=== PATIENT | male | born 1935 | race Hispanic/Latino ===

== ENCOUNTER → 2017-11-30 | Outpatient (CLI) | payer OTHER ==
[~2017-11-30] MED LIST: ACET1TAB12 PO; AEC81 PO; CARB15DR54 OU; DICL100G31 TP; DONE5TAB5 PO; IBUP-2070 PO; LATA2.5D2 OP; LORA10CA9 PO; METO10TA3 PO; METO5TAB2 PO; PANT40TA25 PO; RANI150C4 PO; SIMV20TA6 PO; TAMS0.4C32 PO; TOP2515C TP
== END | disposition home or self-care (01) ==
LOC: RAH 08:06
PROVIDERS: ATTEND Internal Medicine Gastroenterology
DX: K76.0 Fatty (change of) liver, not elsewhere classified (principal)
CPT/HCPCS: 76700

== ENCOUNTER 2017-12-08 06:56 | Day surgery (SDC) | payer OTHER ==
[~2017-12-08] VITALS: Ht 170.2 cm; Wt 101.2 kg
[~2017-12-08 06:56] MED LIST changes: -ACET1TAB12 PO; -CARB15DR54 OU; -DICL100G31 TP; -LATA2.5D2 OP; -METO10TA3 PO; -RANI150C4 PO
[2017-12-08 07:30] VITALS: BP 150/70
[2017-12-08] MEDS ORDERED: SODIUM CHLORIDE 0.9% 1000ML 1,000 ML IV ONE (07:50)
[2017-12-08] MEDS ORDERED: PROPOFOL 10 MG/ML 20ML VIAL IV ONE ×2 (08:32→08:57)
[2017-12-08 08:59] VITALS: BP 90/41
== END 2017-12-08 09:44 ==
LOC: DAH 06:56
PROVIDERS: ATTEND Internal Medicine Gastroenterology
DX: D12.2 Benign neoplasm of ascending colon (principal); D12.3 Benign neoplasm of transverse colon; K21.9 Gastro-esophageal reflux disease without esophagitis; I10 Essential (primary) hypertension; E78.5 Hyperlipidemia, unspecified; N40.0 Benign prostatic hyperplasia without lower urinary tract symptoms; F03.90 Unspecified dementia, unspecified severity, without behavioral disturbance, psychotic disturbance, mood disturbance, and anxiety; Z86.010 Personal history of colon polyps
CPT/HCPCS: 45380; 45381; 88305; 88313; 93005; A4606; J2704 ×2; J7030

== ENCOUNTER 2018-01-12 13:00 | Inpatient (IN) | payer OTHER ==
[~2018-01-12] VITALS: Ht 172.7 cm; Wt 103.3 kg
[~2018-01-12 13:00] MED LIST changes: -LORA10CA9 PO; -METO5TAB2 PO; -PANT40TA25 PO; -TAMS0.4C32 PO
[2018-03-06 12:13] VITALS: BP 123/58
[2018-03-06 12:25] LABS: BASOPHILS % (AUTO) 0.6 % (0.0-5.0); EOSINOPHILS % (AUTO) 2.1 % (0.0-8.0); HEMATOCRIT 39.9 % (42-54); LYMPHOCYTES % (AUTO) 24.3 % (21.0-51.0); MEAN CORPUSCULAR HEMOGLOBIN 28.4 pg (27.0-33.0); MEAN CORPUSCULAR HGB CONC 33.5 g/dL (32.0-36.0); MONOCYTES % (AUTO) 5.8 % (3.0-13.0); NEUTROPHILS % (AUTO) 67.2 % (40.0-77.0); NUCLEATED RED BLOOD CELLS 0.1 % (0.0-0.19); PLATELET COUNT (AUTO) 158 K/uL (130-400); WHITE BLOOD COUNT (AUTO) 6.1 K/uL (4.8-10.8)
[2018-03-06 12:30] LABS: APPEARANCE,URINE Clear (CLEAR); BILIRUBIN,URINE Small (NEGATIVE); COLOR,URINE Dark Yellow (YELLOW); GLUCOSE, URINE (UA) Negative (NEGATIVE); KETONES,URINE Trace mg/dL (NEGATIVE); LEUKOCYTE ESTERASE ,URINE Negative (NEGATIVE); NITRATE,URINE Negative (NEGATIVE); OCCULT BLOOD,URINE Trace (NEGATIVE); PH,URINE 5.5 (5.0-8.0); PROTEIN,URINE POS 1+ (NEGATIVE)
[2018-03-06 12:32] LABS: POTASSIUM 4.2 mmol/L (3.5-5.1)
[2018-03-06 13:26] LABS: BACTERIA,URINE Rare /HPF (None Seen); RBC,URINE 0-1 /HPF (0-1); WBC,URINE None Seen /HPF (0-1)
[2018-03-06 13:27] LABS: CALCIUM OXALATE CRYSTALS,UR Many /LPF (None Seen); HYALINE CASTS, URINE 26-50 /LPF (0-1 /LPF); MUCUS,URINE Many LPF (None Seen)
[2018-03-06] MEDS ORDERED: LATA2.5D2 OP (13:46)
[2018-03-06] MEDS ORDERED: DICL100G31 TP (13:46)
[2018-03-08] VITALS (23 sets, daily range): BP systolic 95–167; BP diastolic 52–91
[2018-03-08] MEDS ORDERED: CEFOXITIN SODIUM 2 GM VIAL IVP ONE (08:00)
[2018-03-08] MEDS ORDERED: LACTATED RINGERS 1000ML 1,000 ML IV ONE (09:14)
[2018-03-08] MEDS ORDERED: CEFAZOLIN SODIUM 1 GM VIAL ONE (09:14)
[2018-03-08] MEDS ORDERED: TAMS0.4C32 PO (10:01)
[2018-03-08] MEDS ORDERED: METO10TA3 PO (10:01)
[2018-03-08] MEDS ORDERED: CARB15DR54 OU (10:01)
[2018-03-08] MEDS ORDERED: CEFOXITIN SODIUM 2 GM VIAL ONE (10:08)
[2018-03-08] MEDS ORDERED: MIDAZOLAM HCL 1 MG/ML 2ML VIAL ONE (10:16)
[2018-03-08] MEDS ORDERED: GLYCOPYRROLATE 0.2 MG/ML 5 ML VIAL ONE (10:16)
[2018-03-08] MEDS ORDERED: DEXAMETHASONE SOD PHOSPHATE 10MG/ML 1ML VIAL ONE (10:16)
[2018-03-08] MEDS ORDERED: LIDOCAINE PF 2% 5ML ABBOJECT ONE (10:16)
[2018-03-08] MEDS ORDERED: PROPOFOL 10 MG/ML 20ML VIAL IV ONE (10:16)
[2018-03-08] MEDS ORDERED: NEOSTIGMINE 5MG/5ML SYR IV ONE (10:16)
[2018-03-08] MEDS ORDERED: FENTANYL CITRATE PF 50 MCG/1 ML 2ML VIAL ONE ×2 (10:16→12:43)
[2018-03-08] MEDS ORDERED: ONDANSETRON HCL 4 MG/2 ML VIAL IVP PRN ×3 (11:45→19:45)
[2018-03-08] MEDS ORDERED: ONDANSETRON HCL MDV 20ML 2 MG/ML VIAL ONE (12:45)
[2018-03-08] MEDS ORDERED: METOCLOPRAMIDE 10 MG/2 ML VIAL ONE (12:45)
[2018-03-08] MEDS ORDERED: CEFOXITIN 1GM+NS 100ML 100 ML IV SCH (16:00)
[2018-03-08] MEDS: CEFOXITIN SODIUM 1 GM VIAL IVP SCH ×2 (17:22→23:11)
[2018-03-08] MEDS: LACTATED RINGERS 1000ML 1,000 ML IV SCH ×2 (17:34→21:39)
[2018-03-08] MEDS ORDERED: METOCLOPRAMIDE 10 MG/2 ML VIAL IVP PRN (19:45)
[2018-03-08] MEDS ORDERED: HYDROCODONE/ACETAMINOPHEN 5/325 MG TAB PO PRN (19:45)
[2018-03-08] MEDS ORDERED: ROPIVACAINE 0.2%200ML EPIDURAL 200 ML EP SCH (19:45)
[2018-03-08] MEDS ORDERED: MORPHINE SULFATE 2 MG/ML 1ML SYG IVP PRN (19:45)
[2018-03-08] MEDS ORDERED: PROMETHAZINE HCL 25 MG/ML 1ML AMPULE IM PRN (19:45)
[2018-03-08] MEDS ORDERED: DiphenhydrAMINE HCL 50 MG/ML VIAL IVP PRN (19:45)
[2018-03-08] MEDS ORDERED: NALOXONE HCL 0.4 MG/1 ML ML IVP PRN ×2 (19:45)
[2018-03-08] MEDS ORDERED: EPHEDRINE SULFATE 50 MG/ML AMPULE IVP PRN (19:45)
[2018-03-08] MEDS ORDERED: ONDANSETRON HCL 4 MG/2 ML 8 MG in SODIUM CHLORIDE 0.9% 50 ML IVP NR (19:45)
[2018-03-08] MEDS ORDERED: ACETAMINOPHEN 650 MG SUPPOSITORY RC PRN (20:30)
[2018-03-08] MEDS ORDERED: ACETAMINOPHEN 650 MG SUPPOSITORY RC ONE (20:33)
[2018-03-08] MEDS: LATANOPROST 2.5 ML DROPS OP SCH (20:39)
[2018-03-08] MEDS: ROPIVACAINE 0.2%200ML EPIDURAL 200 ML EP SCH (20:39)
[2018-03-09] VITALS (8 sets, daily range): BP systolic 125–186; BP diastolic 59–82
[2018-03-09] MEDS: CEFOXITIN SODIUM 1 GM VIAL IVP SCH (04:55)
[2018-03-09] MEDS: LACTATED RINGERS 1000ML 1,000 ML IV SCH ×2 (04:56→19:21)
[2018-03-09 05:53] LABS: BASOPHILS % (AUTO) 0.2 % (0.0-5.0); EOSINOPHILS % (AUTO) 0.3 % (0.0-8.0); HEMATOCRIT 37.8 % (42-54); LYMPHOCYTES % (AUTO) 16.2 % (21.0-51.0); MEAN CORPUSCULAR HEMOGLOBIN 28.2 pg (27.0-33.0); MEAN CORPUSCULAR VOLUME 85.5 fL (79-99); MONOCYTES % (AUTO) 5.6 % (3.0-13.0); NEUTROPHILS % (AUTO) 77.7 % (40.0-77.0); PLATELET COUNT (AUTO) 129 K/uL (130-400); RED BLOOD CELL COUNT(AUTO) 4.43 MIL/uL (4.50-6.20); RED CELL DISTRIBUTION WIDTH 15.1 % (11.0-15.5); WHITE BLOOD COUNT (AUTO) 8.6 K/uL (4.8-10.8)
[2018-03-09 06:01] LABS: CREATININE 1.1 mg/dL (0.5-1.5); POTASSIUM 4.3 mmol/L (3.5-5.1)
[2018-03-09] MEDS: ROPIVACAINE 0.2%200ML EPIDURAL 200 ML EP SCH ×2 (06:52→19:16)
[2018-03-09] MEDS: LATANOPROST 2.5 ML DROPS OP SCH (19:22)
[2018-03-10] MEDS: LACTATED RINGERS 1000ML 1,000 ML IV SCH ×3 (02:01→22:45)
[2018-03-10 03:27] VITALS: BP 131/72
[2018-03-10] MEDS: ROPIVACAINE 0.2%200ML EPIDURAL 200 ML EP SCH (05:09)
[2018-03-10 05:25] LABS: BASOPHILS % (AUTO) 0.4 % (0.0-5.0); EOSINOPHILS % (AUTO) 0.8 % (0.0-8.0); HEMATOCRIT 36.6 % (42-54); LYMPHOCYTES % (AUTO) 15.4 % (21.0-51.0); MEAN CORPUSCULAR HEMOGLOBIN 28.9 pg (27.0-33.0); MEAN CORPUSCULAR HGB CONC 34.2 g/dL (32.0-36.0); MEAN CORPUSCULAR VOLUME 84.7 fL (79-99); MONOCYTES % (AUTO) 6.4 % (3.0-13.0); PLATELET COUNT (AUTO) 133 K/uL (130-400); RED BLOOD CELL COUNT(AUTO) 4.32 MIL/uL (4.50-6.20); WHITE BLOOD COUNT (AUTO) 8.1 K/uL (4.8-10.8)
[2018-03-10 05:41] LABS: POTASSIUM 3.9 mmol/L (3.5-5.1)
[2018-03-10 08:00] VITALS: BP 154/79
[2018-03-10 11:43] VITALS: BP 158/72
[2018-03-10 16:00] VITALS: BP 162/82
[2018-03-10] MEDS: LATANOPROST 2.5 ML DROPS OP SCH (19:41)
[2018-03-10 20:03] VITALS: BP 160/90
[2018-03-10 23:48] VITALS: BP 137/82
[2018-03-11 04:03] VITALS: BP 146/71
[2018-03-11 05:06] LABS: BASOPHILS % (AUTO) 0.4 % (0.0-5.0); EOSINOPHILS % (AUTO) 1.7 % (0.0-8.0); HEMATOCRIT 37.1 % (42-54); LYMPHOCYTES % (AUTO) 13.1 % (21.0-51.0); MEAN CORPUSCULAR HEMOGLOBIN 28.3 pg (27.0-33.0); MEAN CORPUSCULAR HGB CONC 33.4 g/dL (32.0-36.0); MEAN CORPUSCULAR VOLUME 84.7 fL (79-99); MONOCYTES % (AUTO) 5.7 % (3.0-13.0); NEUTROPHILS % (AUTO) 79.1 % (40.0-77.0); PLATELET COUNT (AUTO) 144 K/uL (130-400); RED BLOOD CELL COUNT(AUTO) 4.38 MIL/uL (4.50-6.20); WHITE BLOOD COUNT (AUTO) 7.5 K/uL (4.8-10.8)
[2018-03-11 05:14] LABS: POTASSIUM 3.6 mmol/L (3.5-5.1)
[2018-03-11] MEDS: ROPIVACAINE 0.2%200ML EPIDURAL 200 ML EP SCH (05:19)
[2018-03-11 08:00] VITALS: BP 130/75
[2018-03-11] MEDS: LACTATED RINGERS 1000ML 1,000 ML IV SCH ×2 (09:39→21:58)
[2018-03-11 11:57] VITALS: BP 150/82
[2018-03-11 20:00] VITALS: BP 163/78
[2018-03-11] MEDS: LATANOPROST 2.5 ML DROPS OP SCH (21:23)
[2018-03-11 23:50] VITALS: BP 106/65
[2018-03-12] VITALS (7 sets, daily range): BP systolic 129–161; BP diastolic 66–85
[2018-03-12] MEDS: ROPIVACAINE 0.2%200ML EPIDURAL 200 ML EP SCH (03:35)
[2018-03-12] MEDS: LACTATED RINGERS 1000ML 1,000 ML IV SCH (17:39)
[2018-03-12] MEDS: LATANOPROST 2.5 ML DROPS OP SCH (21:32)
[2018-03-13 03:57] VITALS: BP 152/81
[2018-03-13 07:37] VITALS: BP 163/82
[2018-03-13 11:28] VITALS: BP 137/80
[2018-03-13] MEDS: HYDROCODONE/ACETAMINOPHEN 5/325 MG TAB PO PRN (14:39)
[2018-03-13] MEDS ORDERED: NON-FORMULARY MEDICATION 1 EACH (Diclofenac Sodium 100 GM) TP PRN (14:45)
[2018-03-13] MEDS ORDERED: CARBOXYMETHYLCELLULOSE SODIUM OU SCH (14:45)
[2018-03-13 15:49] VITALS: BP 123/59
[2018-03-13 20:56] VITALS: BP 129/87
[2018-03-13] MEDS ORDERED: ATORVASTATIN CALCIUM 10 MG TABLET PO SCH (21:00)
[2018-03-13] MEDS ORDERED: TAMSULOSIN HCL 0.4 MG CAP.ER.24H PO SCH (21:00)
[2018-03-13] MEDS ORDERED: DONEPEZIL HCL 5 MG TAB PO SCH (21:00)
[2018-03-13] MEDS: METOCLOPRAMIDE 10 MG TABLET PO SCH (21:10)
[2018-03-13] MEDS: LATANOPROST 2.5 ML DROPS OP SCH (21:10)
[2018-03-13 23:38] VITALS: BP 135/92
[2018-03-14 04:27] VITALS: BP 140/75
[2018-03-14 08:00] VITALS: BP 153/83
[2018-03-14] MEDS ORDERED: ASPIRIN 81 MG EC TAB PO SCH (09:00)
[2018-03-14] MEDS: METOCLOPRAMIDE 10 MG TABLET PO SCH (09:34)
[2018-03-14 11:00] VITALS: BP 128/53
[2018-03-14] MEDS ORDERED: ACET1TAB12 PO (12:25)
[2018-03-14] MEDS: HYDROCODONE/ACETAMINOPHEN 5/325 MG TAB PO PRN (13:49)
== END 2018-03-14 15:00 | disposition home or self-care (01) | DRG 331 ==
LOC: EDSTATUS 03-06 14:00 → DAHIP 03-08 08:39 → 4AH 03-08 13:04 → 4CH 03-11 20:02
PROVIDERS: ADMIT Surgery; ATTEND Surgery
PROC: 0DTF0ZZ Resection of Right Large Intestine, Open Approach (ICD-10-PCS; principal; 2018-03-08 10:16)
PROC: 0D1B0ZH Bypass Ileum to Cecum, Open Approach (ICD-10-PCS; 2018-03-08 10:16)
PROC: 0D9670Z Drainage of Stomach with Drainage Device, Via Natural or Artificial Opening (ICD-10-PCS; 2018-03-09)
DX: D12.2 Benign neoplasm of ascending colon (principal); E66.9 Obesity, unspecified; Z68.34 Body mass index [BMI] 34.0-34.9, adult
CPT/HCPCS: 36415; 80048; 81001; 85025; 88307; A4218; A4344; J0690; J0694; J1100; J2001; J2250; J2704; J2710; J2765; J2795; J3010; J3490; J7120

== ENCOUNTER → 2018-06-29 | Outpatient (CLI) | payer OTHER ==
[~2018-06-29] MED LIST changes: +ACET1TAB12 PO; +CARB15DR54 OU; +DICL100G31 TP; +LATA2.5D2 OP; +METO10TA3 PO; +TAMS0.4C32 PO
== END | disposition home or self-care (01) ==
LOC: SHCH 15:05
PROVIDERS: ATTEND Internal Medicine Cardiovascular Disease
DX: I25.119 Atherosclerotic heart disease of native coronary artery with unspecified angina pectoris (principal); I10 Essential (primary) hypertension; E78.5 Hyperlipidemia, unspecified; K21.9 Gastro-esophageal reflux disease without esophagitis
CPT/HCPCS: 93306

== ENCOUNTER 2018-10-04 09:44 | Observation (INO) | payer OTHER ==
[~2018-10-04] VITALS: Ht 170.2 cm; Wt 99.2 kg
[2018-10-04 10:37] LABS: BASOPHILS % (AUTO) 0.8 % (0.0-5.0); EOSINOPHILS % (AUTO) 2.7 % (0.0-8.0); HEMATOCRIT 36.1 % (42-54); LYMPHOCYTES % (AUTO) 23.6 % (21.0-51.0); MEAN CORPUSCULAR HEMOGLOBIN 27.7 pg (27.0-33.0); MONOCYTES % (AUTO) 5.8 % (3.0-13.0); NEUTROPHILS % (AUTO) 67.1 % (40.0-77.0); NUCLEATED RED BLOOD CELLS 0.1 % (0.0-0.19); PLATELET COUNT (AUTO) 129 K/uL (130-400); RED CELL DISTRIBUTION WIDTH 16.1 % (11.0-15.5); WHITE BLOOD COUNT (AUTO) 3.5 K/uL (4.8-10.8)
[2018-10-04 10:47] LABS: POTASSIUM 3.9 mmol/L (3.5-5.1)
[2018-10-04] MEDS ORDERED: IOHEXOL-350 75 ML VIAL IV ONE (11:04)
[2018-10-04 14:13] LABS: APPEARANCE,URINE Clear (CLEAR); BILIRUBIN,URINE Negative (NEGATIVE); COLOR,URINE Yellow (YELLOW); GLUCOSE, URINE (UA) Negative (NEGATIVE); KETONES,URINE Trace mg/dL (NEGATIVE); LEUKOCYTE ESTERASE ,URINE Negative (NEGATIVE); NITRATE,URINE Negative (NEGATIVE); OCCULT BLOOD,URINE Negative (NEGATIVE); PROTEIN,URINE Negative (NEGATIVE); UROBILINOGEN,URINE 0.2 mg/dL (0.2-1.0)
[2018-10-04] MEDS ORDERED: MECLIZINE HCL 25 MG TABLET PO PRN (14:30)
[2018-10-04] MEDS ORDERED: ACETAMINOPHEN 325 MG TAB PO PRN ×2 (14:30)
[2018-10-04 14:41] LABS: RBC,URINE 0-1 /HPF (0-1); WBC,URINE 0-1 /HPF (0-1)
[2018-10-04 14:42] LABS: BACTERIA,URINE Rare /HPF (None Seen); SQUAMOUS EPITHELIAL CELL,UR Rare /HPF (0-2)
[2018-10-04] MEDS ORDERED: DIPH25TA22 PO (18:04)
[2018-10-04] MEDS ORDERED: METO5TAB2 PO (18:04)
[2018-10-04] MEDS ORDERED: MECL-111 PO (18:04)
[2018-10-04] MEDS: SODIUM CHLORIDE 0.9% 1000ML 1,000 ML IV SCH (18:17)
[2018-10-04 19:25] VITALS: BP 138/71
[2018-10-04 20:00] VITALS: BP 140/80
[2018-10-05 00:05] VITALS: BP 142/90
[2018-10-05] MEDS: SODIUM CHLORIDE 0.9% 1000ML 1,000 ML IV SCH (03:09)
[2018-10-05 04:00] VITALS: BP 134/88
[2018-10-05] MEDS ORDERED: GADODIAMIDE 10 MMOL/20 ML ML IV ONE (07:50)
[2018-10-05 12:00] VITALS: BP 176/89
[2018-10-05] MEDS ORDERED: LATANOPROST 2.5 ML DROPS OP SCH (21:00)
[2018-10-05] MEDS ORDERED: METOCLOPRAMIDE 5 MG TABLET PO SCH (21:00)
[2018-10-05] MEDS ORDERED: SIMVASTATIN 20 MG TABLET PO SCH (21:00)
[2018-10-05] MEDS ORDERED: TAMSULOSIN HCL 0.4 MG CAP.ER.24H PO SCH (21:00)
[2018-10-05] MEDS ORDERED: DONEPEZIL HCL 5 MG TAB PO SCH (21:00)
[2018-10-06] MEDS ORDERED: ASPIRIN 81 MG EC TAB PO SCH (09:00)
[2018-10-06] MEDS ORDERED: TOPICORT 0.25% TP SCH (09:00)
== END 2018-10-05 15:20 | disposition home or self-care (01) ==
LOC: EDH 09:44 → EDHIP 13:45 → 3DH 16:59
PROVIDERS: ADMIT Internal Medicine; ATTEND Internal Medicine
DX: R42 Dizziness and giddiness (principal); R11.2 Nausea with vomiting, unspecified; N40.0 Benign prostatic hyperplasia without lower urinary tract symptoms; E78.5 Hyperlipidemia, unspecified; G30.9 Alzheimer's disease, unspecified; F02.80 Dementia in other diseases classified elsewhere, unspecified severity, without behavioral disturbance, psychotic disturbance, mood disturbance, and anxiety; Z87.820 Personal history of traumatic brain injury; Z87.891 Personal history of nicotine dependence; Z83.3 Family history of diabetes mellitus; Z96.653 Presence of artificial knee joint, bilateral; Z82.0 Family history of epilepsy and other diseases of the nervous system
CPT/HCPCS: 36415; 70496; 70544; 70553; 80048; 81001; 84484; 85025; 93005; 96360; 96361; A9579; G0378; Q9967

== ENCOUNTER 2019-07-07 08:35 | Observation (INO) | payer MEDICARE, OTHER ==
[~2019-07-07] VITALS: Ht 170.2 cm; Wt 96.6 kg
[~2019-07-07 08:35] MED LIST changes: -ACET1TAB12 PO; -CARB15DR54 OU; -DICL100G31 TP; +DIPH25TA22 PO; +MECL-111 PO; -METO10TA3 PO; +METO5TAB2 PO
[2019-07-07] MEDS ORDERED: SODIUM CHLORIDE 0.9% 1000ML 1,000 ML IV ONE (08:59)
[2019-07-07] MEDS ORDERED: ONDANSETRON HCL 4 MG/2 ML VIAL ONE (08:59)
[2019-07-07 09:29] LABS: BASOPHILS % (AUTO) 0.4 % (0.0-5.0); EOSINOPHILS % (AUTO) 1.2 % (0.0-8.0); HEMATOCRIT 39.8 % (42-54); LYMPHOCYTES % (AUTO) 27.9 % (21.0-51.0); MEAN CORPUSCULAR HEMOGLOBIN 31.3 pg (27.0-33.0); MEAN CORPUSCULAR HGB CONC 34.2 g/dL (32.0-36.0); MEAN CORPUSCULAR VOLUME 91.5 fL (79-99); MONOCYTES % (AUTO) 8.4 % (3.0-13.0); NEUTROPHILS % (AUTO) 62.1 % (40.0-77.0); PLATELET COUNT (AUTO) 134 K/uL (130-400); RED BLOOD CELL COUNT(AUTO) 4.35 MIL/uL (4.50-6.20); RED CELL DISTRIBUTION WIDTH 14.4 % (11.0-15.5); WHITE BLOOD COUNT (AUTO) 4.5 K/uL (4.8-10.8)
[2019-07-07] MEDS ORDERED: LACTULOSE 20 GM/30 ML UDCUP ONE (09:36)
[2019-07-07 09:50] LABS: POTASSIUM 4.1 mmol/L (3.5-5.1)
[2019-07-07 09:57] LABS: ALBUMIN 3.7 g/dL (3.5-5.0); BILIRUBIN,TOTAL 0.6 mg/dL (0.2-1.0)
[2019-07-07 10:45] VITALS: BP 145/77
[2019-07-07] MEDS ORDERED: PANT40TA25 PO (11:02)
[2019-07-07] MEDS ORDERED: TRIA454O TP (11:02)
[2019-07-07] MEDS ORDERED: DICL1KIT14 TP (11:05)
[2019-07-07] MEDS: LACTULOSE 20 GM/30 ML UDCUP PO SCH ×2 (12:01→12:15)
[2019-07-07 12:18] VITALS: BP 141/81
[2019-07-07 12:19] VITALS: BP 141/81
[2019-07-07] MEDS ORDERED: MAGNESIUM CITRATE 296 ML SOLUTION PO SCH (15:00)
[2019-07-07 16:00] VITALS: BP 133/77
[2019-07-07] MEDS ORDERED: PEG 3350/NA SULF,BICARB,CL/KCL 4000 ML SOLN PO SCH (16:00)
[2019-07-07] MEDS ORDERED: BISACODYL 5 MG TABLET.DR PO SCH (18:00)
[2019-07-07 20:00] VITALS: BP 130/77
[2019-07-07] MEDS ORDERED: LATANOPROST 2.5 ML DROPS OP SCH (21:00)
[2019-07-07] MEDS ORDERED: SIMVASTATIN 20 MG TABLET PO SCH (21:00)
[2019-07-07] MEDS ORDERED: TAMSULOSIN HCL 0.4 MG CAP.ER.24H PO SCH (21:00)
--- NOTE | 2019-07-07 22:04 | NUR ---
TAP WATER ENEMA Tap water enema given,elsa well.Pt had clear stools.
[2019-07-08] VITALS (22 sets, daily range): BP systolic 118–151; BP diastolic 55–109
[2019-07-08 05:34] LABS: HEMATOCRIT 36.2 % (42-54); MEAN CORPUSCULAR HEMOGLOBIN 31.6 pg (27.0-33.0); MEAN CORPUSCULAR HGB CONC 34.4 g/dL (32.0-36.0); PLATELET COUNT (AUTO) 125 K/uL (130-400); RED BLOOD CELL COUNT(AUTO) 3.93 MIL/uL (4.50-6.20); RED CELL DISTRIBUTION WIDTH 14.5 % (11.0-15.5); WHITE BLOOD COUNT (AUTO) 3.8 K/uL (4.8-10.8)
[2019-07-08 05:41] LABS: POTASSIUM 3.6 mmol/L (3.5-5.1)
[2019-07-08 05:52] LABS: INR 1.03 (0.85-1.15); PROTHROMBIN TIME 10.8 SEC (9.6-11.6)
[2019-07-08] MEDS ORDERED: PANTOPRAZOLE SODIUM 40 MG TABLET.DR PO SCH (07:30)
[2019-07-08 08:22] LABS: BASOPHILS % (MANUAL) 2 % (0-2); EOSINOPHILS % (MANUAL) 3 % (1-6); LYMPHOCYTES % (MANUAL) 24 % (22-44); MAN.DIFF COMMENT-IMPRESSION MANUAL DIFFERENTIAL; MONOCYTES % (MANUAL) 8 % (2-9); PLATELET MORPHOLOGY COMMENT SLIGHTLY DECREASED; REACTIVE LYMPHOCYTES 8 % (0-0); SEGMENTED NEUTROPHILS % 55 % (40-70)
[2019-07-08] MEDS ORDERED: DONEPEZIL HCL 5 MG TAB PO SCH (09:00)
[2019-07-08] MEDS ORDERED: METOCLOPRAMIDE 5 MG TABLET PO SCH (09:00)
[2019-07-08] MEDS ORDERED: ASPIRIN 81 MG EC TAB PO SCH (09:00)
--- NOTE | 2019-07-08 13:10 | NUR ---
INIIELMER MET W PT AND SPOUE, PT IS INDP, NO DME, DOES NOT DIRVE, SPOUES DOES NOT DIRVE, LOOKING FOR PROVIDER SERVICES, REFERRA TO VANDANA AND PHONE NUMBER GIVEN, HOME SAFE AND ACCESSIBLE, [facility] Addendum: 07/09/19 at 1703 by MARE REYES RN CM Amended: Links added.
[2019-07-08] MEDS ORDERED: PROPOFOL 10 MG/ML 20ML VIAL IV ONE (13:40)
[2019-07-08] MEDS ORDERED: HYDR25SU11 RC (15:04)
--- NOTE | 2019-07-08 17:30 | NUR ---
PATIENT GIVEN DISCHARGE INSTRUCTIONS AND EDUCATION ON FOLLOW UP APPOINTMENTS AND NEW PRESCRIBED MEDICATIONS. PATIENT AND VERBALIZED UNDERSTANDING OF ALL EDUCATION GIVEN VIA TEACH BACK. IV DISCONTINUED, CATHETER INTACT. NO DISTRESS NOTED UPON DISCHARGE.
== END 2019-07-08 18:00 | disposition home or self-care (01) ==
LOC: EDH 08:35 → EDHIP 09:21 → 3CH 10:24
PROVIDERS: ADMIT Family Medicine; ATTEND Family Medicine
DX: D12.5 Benign neoplasm of sigmoid colon (principal); K64.0 First degree hemorrhoids; D50.9 Iron deficiency anemia, unspecified; E78.5 Hyperlipidemia, unspecified; N40.0 Benign prostatic hyperplasia without lower urinary tract symptoms; G30.9 Alzheimer's disease, unspecified; F02.80 Dementia in other diseases classified elsewhere, unspecified severity, without behavioral disturbance, psychotic disturbance, mood disturbance, and anxiety; Z86.010 Personal history of colon polyps; Z87.891 Personal history of nicotine dependence; Z96.653 Presence of artificial knee joint, bilateral; Z83.3 Family history of diabetes mellitus; Z82.0 Family history of epilepsy and other diseases of the nervous system; Z79.899 Other long term (current) drug therapy
CPT/HCPCS: 36415 ×2; 45380; 80048; 80053; 83735; 85025 ×2; 85610; 87507; 99284; G0378 ×33; J2405; J2704; J7030

== ENCOUNTER 2020-02-08 18:09 | Inpatient (IN) | payer MEDICARE ==
[~2020-02-08] VITALS: Ht 170.2 cm; Wt 89.4 kg
[~2020-02-08 18:09] MED LIST changes: +DICL1KIT14 TP; -IBUP-2070 PO; -MECL-111 PO; +PANT40TA54 PO; +SIMV-43 PO; -SIMV20TA6 PO; -TOP2515C TP; +TRIA454O TP
[2020-02-08] MEDS ORDERED: AMIODARONE HCL 50 MG/ML 3 ML VIAL ONE (18:29)
[2020-02-08 18:49] LABS: BASOPHILS % (AUTO) 0.4 % (0.0-5.0); EOSINOPHILS % (AUTO) 0.9 % (0.0-8.0); HEMATOCRIT 43.6 % (42-54); LYMPHOCYTES % (AUTO) 26.3 % (21.0-51.0); MEAN CORPUSCULAR HEMOGLOBIN 31.6 pg (27.0-33.0); MEAN CORPUSCULAR HGB CONC 34.2 g/dL (32.0-36.0); MEAN CORPUSCULAR VOLUME 92.4 fL (79-99); MONOCYTES % (AUTO) 6.5 % (3.0-13.0); NEUTROPHILS % (AUTO) 65.6 % (40.0-77.0); PLATELET COUNT (AUTO) 154 K/uL (130-400); RED BLOOD CELL COUNT(AUTO) 4.72 MIL/uL (4.50-6.20); RED CELL DISTRIBUTION WIDTH 13.2 % (11.0-15.5); WHITE BLOOD COUNT (AUTO) 6.9 K/uL (4.8-10.8)
[2020-02-08 19:02] LABS: INR 1.01 (0.85-1.15); PARTIAL THROMBOPLASTIN TIME 24.9 SEC (26.3-35.5); PROTHROMBIN TIME 10.9 SEC (9.6-11.6)
[2020-02-08] MEDS ORDERED: ASPIRIN 325 MG TABLET ONE (19:02)
[2020-02-08 19:18] LABS: CREATININE 1.6 mg/dL (0.5-1.5); POTASSIUM 4.4 mmol/L (3.5-5.1)
[2020-02-08 19:20] LABS: B-TYPE NATRIURETIC PEPTIDE 112 pg/mL (0-100)
[2020-02-08 19:25] LABS: ALBUMIN 4.1 g/dL (3.5-5.0); BILIRUBIN,TOTAL 0.3 mg/dL (0.2-1.0); MAGNESIUM 2.2 mg/dL (1.80-2.40); TOTAL PROTEIN, SERUM 7.1 g/dL (6.0-8.3)
[2020-02-08 20:48] LABS: LACTATE DEHYDROGENASE 238 U/L (81-234)
[2020-02-08 20:52] LABS: APPEARANCE,URINE CLEAR (CLEAR); BILIRUBIN,URINE NEGATIVE (NEGATIVE); COLOR,URINE YELLOW (YELLOW); GLUCOSE, URINE (UA) NEGATIVE (NEGATIVE); KETONES,URINE NEGATIVE (NEGATIVE); LEUKOCYTE ESTERASE ,URINE NEGATIVE (NEGATIVE); NITRATE,URINE NEGATIVE (NEGATIVE); OCCULT BLOOD,URINE NEGATIVE (NEGATIVE); PROTEIN,URINE TRACE mg/dL (NEGATIVE); UROBILINOGEN,URINE 0.2 mg/dL (0.2-1.0)
[2020-02-08 21:19] LABS: BACTERIA,URINE Rare /HPF (None Seen); CALCIUM OXALATE CRYSTALS,UR Few /LPF (None Seen); RBC,URINE 0-1 /HPF (0-1); SQUAMOUS EPITHELIAL CELL,UR Rare /HPF (0-2); WBC,URINE 0-1 /HPF (0-1)
[2020-02-08 21:21] LABS: CRP QUANTITATIVE < 2.00 mg/L (0.00-9.0)
[2020-02-08] MEDS ORDERED: ONDANSETRON HCL 4 MG/2 ML VIAL IV PRN (21:45)
[2020-02-08] MEDS ORDERED: HYDRALAZINE HCL 20 MG/ML VIAL IV PRN (22:15)
[2020-02-08] MEDS ORDERED: NITROGLYCERIN 1GM/1 INCH PACKET TD ONE (22:31)
[2020-02-08] MEDS ORDERED: HEPARIN SODIUM 5000UNIT/ML 1ML VIAL ONE (22:31)
[2020-02-08] MEDS ORDERED: FAMOTIDINE/PF 20 MG/2 ML VIAL IV ONE (22:32)
[2020-02-09] VITALS (7 sets, daily range): BP systolic 108–152; BP diastolic 52–91
[2020-02-09 00:31] LABS: CREATINE KINASE, TOTAL 94 U/L (21-232); MYOGLOBIN 68 ng/mL (10-92); TROPONIN I < 0.04 ng/mL (0.00-0.06)
--- NOTE | 2020-02-09 01:40 | NUR ---
PT ARRIVED VIA STRETCHER WITH TRACIE VUONG (ER). PT AAOx3, DENIES CHEST PAIN. NC O2 AT 2L NO SOB. TRANSFERRED TO BED ROOM 226, BED TO LOWEST LEVEL. CALL LIGHT AND PHONE WITHIN REACH.
--- NOTE | 2020-02-09 02:00 | NUR ---
UPON ADMISSION PT STATED HE HAS A SORE THROAT FOR 1 WEEK, HIS HAS SORE THROAT AND COUGH FOR 1 WEEK. A FEMALE FROM [facility] VISITED THEIR RESIDENCE A WEEK AGO TO PROVIDE COOKING/CLEANING FOR 3 DAYS. AND AFTER HER VISITS, IS WHEN SYMPTOMS STARTED. WHILE MOWING THE LAWN (01/08/20)PT BECOME SHORT OF BREATH WITH CHEST PAIN, CALLED EMS, CHEST PAIN LASTED ABOUT AN HOUR. DENIES ANY CHEST PAIN NOW. ON 2L NC. BED TO LOWEST LEVEL. CALL LIGHT AND PHONE WITHIN REACH. PT DID NOT BRING ANY MEDICATIONS FROM HOME. WILL NEED TO CALL SPOUSE FOR MEDS.
[2020-02-09] MEDS: FAMOTIDINE/PF 20 MG/2 ML VIAL IV SCH ×3 (05:50→19:49)
[2020-02-09] MEDS: HEPARIN SODIUM 5000UNIT/ML 1ML VIAL SQ SCH ×4 (05:54→20:44)
[2020-02-09] MEDS: SODIUM CHLORIDE 0.9% 1000ML 1,000 ML IV SCH ×2 (05:54→13:40)
[2020-02-09] MEDS: NITROGLYCERIN 1GM/1 INCH PACKET TD SCH ×5 (05:55→23:28)
[2020-02-09 06:22] LABS: BASOPHILS % (AUTO) 0.4 % (0.0-5.0); EOSINOPHILS % (AUTO) 1.8 % (0.0-8.0); HEMATOCRIT 36.4 % (42-54); MEAN CORPUSCULAR HEMOGLOBIN 30.1 pg (27.0-33.0); MEAN CORPUSCULAR HGB CONC 32.7 g/dL (32.0-36.0); MEAN CORPUSCULAR VOLUME 92.2 fL (79-99); MONOCYTES % (AUTO) 7.4 % (3.0-13.0); PLATELET COUNT (AUTO) 114 K/uL (130-400); RED BLOOD CELL COUNT(AUTO) 3.95 MIL/uL (4.50-6.20); RED CELL DISTRIBUTION WIDTH 13.3 % (11.0-15.5)
[2020-02-09 06:44] LABS: BILIRUBIN,TOTAL 0.4 mg/dL (0.2-1.0); CREATININE 1.2 mg/dL (0.5-1.5); MAGNESIUM 1.9 mg/dL (1.80-2.40); POTASSIUM 4.5 mmol/L (3.5-5.1); TOTAL PROTEIN, SERUM 5.7 g/dL (6.0-8.3)
[2020-02-09 06:46] LABS: CREATINE KINASE, TOTAL 87 U/L (21-232); MYOGLOBIN 80 ng/mL (10-92); TROPONIN I < 0.04 ng/mL (0.00-0.06)
[2020-02-09 06:50] LABS: HEMOGLOBIN A1C 5.6 % (4.0-6.0)
[2020-02-09] MEDS ORDERED: MAGNESIUM 2GM PREMIX 50ML 50 ML IV SCH (07:45)
[2020-02-09] MEDS: METOPROLOL TARTRATE 25 MG TAB PO SCH ×2 (08:22→19:49)
[2020-02-09] MEDS: ASPIRIN 81MG TAB.CHEW PO SCH (08:24)
[2020-02-09] MEDS: DONEPEZIL HCL 5 MG TAB PO SCH (08:24)
--- NOTE | 2020-02-09 10:58 | NUR ---
cm note call made to pt and states resides at home with spouse. independent with adls and self care and ambulation. no dme. states dcplan is back to same home setting at [place]. has provider pending to start. states no dc needs. Addendum: 02/09/20 at 1101 by MIKAEL CAPPS CM Amended: Links added.
--- NOTE | 2020-02-09 16:47 | NUR ---
RECEIVED CALL FROM BERTIN SPICER JR., UPDATED ON PT. STATUS AND QUESTIONS ANSWERED, VERBALIZED UNDERSTANDING.
[2020-02-09 19:22] LABS: MAGNESIUM 2.3 mg/dL (1.80-2.40); POTASSIUM 3.8 mmol/L (3.5-5.1)
[2020-02-09] MEDS ORDERED: LORAZEPAM 0.5 MG TABLET PO SCH (19:35)
[2020-02-09] MEDS ORDERED: LORAZEPAM 0.5 MG TABLET ONE (19:46)
[2020-02-09] MEDS ORDERED: LATANOPROST 2.5 ML DROPS OP SCH (21:00)
[2020-02-09] MEDS ORDERED: TAMSULOSIN HCL 0.4 MG CAP.ER.24H PO SCH (21:00)
[2020-02-09] MEDS ORDERED: DIPHENHYDRAMINE HCL 25 MG CAPSULE PO PRN (21:00)
[2020-02-09] MEDS ORDERED: SIMVASTATIN 20 MG TABLET PO SCH (21:00)
[2020-02-10 03:55] VITALS: BP 135/67
[2020-02-10] MEDS: HEPARIN SODIUM 5000UNIT/ML 1ML VIAL SQ SCH (05:44)
[2020-02-10 06:20] LABS: HEMATOCRIT 38.5 % (42-54); MEAN CORPUSCULAR HEMOGLOBIN 30.4 pg (27.0-33.0); MEAN CORPUSCULAR HGB CONC 32.7 g/dL (32.0-36.0); PLATELET COUNT (AUTO) 132 K/uL (130-400); RED BLOOD CELL COUNT(AUTO) 4.14 MIL/uL (4.50-6.20); RED CELL DISTRIBUTION WIDTH 13.2 % (11.0-15.5); WHITE BLOOD COUNT (AUTO) 5.4 K/uL (4.8-10.8)
[2020-02-10 06:33] LABS: CREATININE 1.1 mg/dL (0.5-1.5)
[2020-02-10 07:30] VITALS: BP 135/67
[2020-02-10] MEDS: ASPIRIN 81MG TAB.CHEW PO SCH (07:42)
[2020-02-10] MEDS: NITROGLYCERIN 1GM/1 INCH PACKET TD SCH (07:42)
[2020-02-10] MEDS: FAMOTIDINE/PF 20 MG/2 ML VIAL IV SCH (07:42)
[2020-02-10] MEDS: METOPROLOL TARTRATE 25 MG TAB PO SCH (07:42)
[2020-02-10] MEDS: DONEPEZIL HCL 5 MG TAB PO SCH (07:42)
--- NOTE | 2020-02-10 08:00 | NUR ---
ASSESSMENT PT IS AAOX3 DENIES CP DENIES SOB DENIES NV NO COMPLAINTS RESTING IN BED. AM MEDS GIVEN. CALL LIGHT WITHIN REACH, ISOLATION MAINTAINED.
[2020-02-10 08:23] LABS: EOSINOPHILS % (MANUAL) 2 % (1-6); LYMPHOCYTES % (MANUAL) 32 % (22-44); MAN.DIFF COMMENT-IMPRESSION MANUAL DIFFERENTIAL; MONOCYTES % (MANUAL) 6 % (2-9); PLATELET MORPHOLOGY COMMENT ADEQUATE; SEGMENTED NEUTROPHILS % 60 % (40-70)
[2020-02-10] MEDS ORDERED: LACTATED RINGERS 1000ML 1,000 ML IV SCH (10:45)
[2020-02-10 11:00] VITALS: BP 141/78
[2020-02-10] MEDS ORDERED: SODIUM CHLORIDE 0.9% 1000ML 1,000 ML IV SCH (11:30)
--- NOTE | 2020-02-10 11:50 | NUR ---
MD ROUNDS / AMA DR AYERS AND DR BULL ROUNDED, ORDERS RECEIVED. PATIENT REFUSES TO STAY IN HOSPITAL. SPOUSE AND 2 SONS CALLED ME MULTIPLE TIMES THIS AM WANTING PATIENT TO BE DC HOME. DR BULL SPOKE WITH SON FROM [facility] VIA PHONE. PATIENT DOESN'T WANT TO STAY AND FAMILY AGREES THAT THEY WILL COME PICK HIM UP SOON AMA PAPERWORK IS SIGNED. PIVS REMOVED CATH TIPS INTACT. TELE PACK REMOVED. ALL BELONGINGS GATHERED BY PATIENT.
[2020-02-10] MEDS ORDERED: LATANOPROST 2.5 ML DROPS OP SCH (21:00)
--- NOTE | 2020-02-13 10:24 | NUR ---
INFECTION CONTROL-COVID RESULTS NEGATIVE. CALLED AND LEFT MESSAGE WITH PT. NO ANSWER
== END 2020-02-10 12:08 | disposition left against medical advice (07) | DRG 303 ==
LOC: EDH 18:09 → EDHIP 21:36 → 2DH 02-09 01:45
PROVIDERS: ADMIT Family Medicine; ATTEND Family Medicine
DX: I25.110 Atherosclerotic heart disease of native coronary artery with unstable angina pectoris (principal); I47.2 Ventricular tachycardia; N17.9 Acute kidney failure, unspecified; F41.1 Generalized anxiety disorder; E86.0 Dehydration; E87.6 Hypokalemia; E83.42 Hypomagnesemia; F02.80 Dementia in other diseases classified elsewhere, unspecified severity, without behavioral disturbance, psychotic disturbance, mood disturbance, and anxiety; E78.5 Hyperlipidemia, unspecified; G30.9 Alzheimer's disease, unspecified; N40.0 Benign prostatic hyperplasia without lower urinary tract symptoms; H81.10 Benign paroxysmal vertigo, unspecified ear; I49.3 Ventricular premature depolarization; Z96.653 Presence of artificial knee joint, bilateral; I11.9 Hypertensive heart disease without heart failure; Z20.828 Contact with and (suspected) exposure to other viral communicable diseases; Z79.899 Other long term (current) drug therapy; Z82.0 Family history of epilepsy and other diseases of the nervous system; Z83.3 Family history of diabetes mellitus; Z85.038 Personal history of other malignant neoplasm of large intestine; Z87.19 Personal history of other diseases of the digestive system
CPT/HCPCS: 36415; 71045; 80048; 80053; 80061; 81001; 82550; 82728; 83036; 83605; 83615; 83735; 83874; 83880; 84132; 84443; 84484; 85025; 85378; 85610; 85730; 86140; 87040; 87633; 87635; 87804; 93005; 93970; 99291; G0378; J0282; J1644; J2405; J3475; J3490; J7030

== ENCOUNTER → 2020-04-14 | Outpatient (CLI) | payer MEDICARE ==
[~2020-04-14] MED LIST changes: +PANT40TA25 PO; -PANT40TA54 PO; +REGADENOSON 0.4 MG/5 ML PF SYG IVP ONE; +REGADENOSON 0.4 MG/5 ML PF SYG IVP SCH
== END | disposition home or self-care (01) ==
LOC: SHCH 08:27
PROVIDERS: ATTEND Internal Medicine Cardiovascular Disease
DX: I20.9 Angina pectoris, unspecified (principal); I10 Essential (primary) hypertension
CPT/HCPCS: 78452; 93017; A9500 ×2; J2785; 96374